=== PATIENT | female | born 2000 | race Caucasian/White ===

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

== ENCOUNTER 2021-09-05 17:48 | Observation (INO) ==
[2021-09-05 18:26] LABS: Bacteria,Urine Few per hpf (None-Few); Bilirubin,Urine Negative (Negative); Blood,Urine Moderate (Negative); Clarity,Urine Turbid (Clear); Color,Urine Colorless (Yellow); Glucose,Urine (UA) Normal (Normal); Ketones,Urine Negative (Negative); Leukocyte Esterase,Urine Large (Negative); Nitrite,Urine Negative (Negative); PH,Urine 6.5 pH Units (5.0-8.0); Protein,Urine Negative (Neg-Trace); RBC,Urine 0-3 per hpf (0-3); Specific Gravity,Urine 1.007 (1.010-1.025); Squamous Epithelial Cell,Urine Moderate per hpf (None-Few); Urobilinogen,Urine Normal (Normal); WBC,Urine 15-30 per hpf (0-3)
[2021-09-05 18:31] LABS: Basophils # 0.1 K/mcL (0.0-0.2); Basophils % 0.6 %; Eosinophils # 0.6 K/mcL (0.0-0.6); Eosinophils % 5.2 %; Hematocrit 38.1 % (35.3-44.9); Immature Granulocytes % 0.4 % (0-4); Lymphocytes % 17.1 %; Mean Corpuscular HGB Conc 31.5 g/dL (31.6-35.5); Mean Corpuscular Hemoglobin 27.3 pg (28.0-33.3); Mean Corpuscular Volume 86.6 fL (83.0-100.0); Mean Platelet Volume 11.2 fL (9.4-12.4); Monocytes # 1.1 K/mcL (0.0-1.3); Neutrophils # 7.6 K/mcL (1.6-8.9); Platelet Count 237 K/mcL (140-400); Red Cell Distribution Width 13.5 % (11.5-14.5); Segmented Neutrophils % 66.7 %; White Blood Count 11.4 K/mcL (4.3-11.1)
[2021-09-05 18:39] LABS: Amphetamine Screen,Urine Negative ng/mL (Cutoff=1000); Barbiturate Screen,Urine Negative ng/mL (Cutoff=200); Benzodiazepines Screen,Urine Negative ng/mL (Cutoff=200); Cannabinoid Screen,Urine Negative ng/mL (Cutoff = 50); Cocaine Screen,Urine Negative ng/mL (Cutoff= 300); Opiate Screen,Urine Negative ng/mL (Cutoff=300); Phencyclidine Screen,Urine Negative ng/mL (Cutoff=25)
[2021-09-05 18:49] LABS: Acetaminophen < 10 mcg/mL (10-20); BUN/Creatinine Ratio 7 (6-26); Blood Urea Nitrogen 7 mg/dL (6-20); Carbon Dioxide 27 mEq/L (23-29); Chloride 108 mEq/L (98-107); Ethanol < 10 mg/dL (Less than 10); Glucose 95 mg/dL (70-105); Osmolality,Calculated 280 (280-300); Potassium 3.5 mEq/L (3.5-5.1); Salicylate < 2.5 mg/dL (15.0-30.0); Sodium 136 mEq/L (136-145); eGFR For African Americans > 60 (> 60); eGFR For Non-African Americans > 60 (> 60)
[2021-09-05 22:50] LABS: Influenza A PCR Negative (Negative); Influenza B PCR Negative (Negative); Resp. Syncytial Virus PCR Negative (Negative)
[2021-09-05 23:15] LABS: SARS-CoV-2 by PCR (In House) Positive (Negative)
[2021-09-06] MEDS ORDERED: Naloxone 0.4 MG/ML INJ IVP PRN (02:19)
[2021-09-06] MEDS ORDERED: Acetaminophen 325 MG TABLET PO PRN (02:19)
[2021-09-06 02:39] LABS: Hematocrit 38.8 % (35.3-44.9); Hemoglobin 12.3 g/dL (11.5-15.4); Mean Corpuscular HGB Conc 31.7 g/dL (31.6-35.5); Mean Corpuscular Hemoglobin 27.5 pg (28.0-33.3); Mean Corpuscular Volume 86.6 fL (83.0-100.0); Mean Platelet Volume 11.3 fL (9.4-12.4); Platelet Count 246 K/mcL (140-400); Red Blood Count 4.48 M/mcL (3.82-4.97); Red Cell Distribution Width 13.5 % (11.5-14.5); White Blood Count 11.6 K/mcL (4.3-11.1)
[2021-09-06 02:42] LABS: Estimated Average Glucose 105 mg/dl; Hemoglobin A1C 5.3 %
[2021-09-06 02:59] LABS: BUN/Creatinine Ratio 6 (6-26); Blood Urea Nitrogen 5 mg/dL (6-20); Calcium 9.1 mg/dL (8.6-10.3); Carbon Dioxide 26 mEq/L (23-29); Chloride 108 mEq/L (98-107); Glucose 97 mg/dL (70-105); Iron 17 mcg/dL (50-170); Osmolality,Calculated 283 (280-300); Potassium 3.6 mEq/L (3.5-5.1); Sodium 138 mEq/L (136-145); eGFR For African Americans > 60 (> 60); eGFR For Non-African Americans > 60 (> 60)
[2021-09-06 03:12] LABS: Thyroid Stimulating Hormone 19.838 mcIU/mL (0.340-5.600)
[2021-09-06 03:17] LABS: Ferritin 53 ng/mL (10-120)
[2021-09-06 03:22] LABS: Folate 8.2 ng/mL (3.0-16.0)
[2021-09-06] MEDS ORDERED: *HR* LORazepam 2 MG/ML VIAL IVP ONE (03:30)
[2021-09-06] MEDS: cefTRIAXone 2,000 MG in 0.9 % Sodium Chloride Mini Bag 100 ML IVPB SCH (08:46)
[2021-09-06] MEDS ORDERED: ALPRAZolam 0.25 MG TABLET PO PRN (09:48)
[2021-09-06] MEDS: lamoTRIgine 25 MG TABLET PO SCH (18:09)
[2021-09-06] MEDS: BuPROPion XL (24 HR) 150 MG TABLET PO SCH (18:09)
[2021-09-07 02:53] VITALS: O2SAT 98
[2021-09-07 06:45] VITALS: BP 104/65; PULSE 68; TEMP 97.5
[2021-09-07] MEDS ORDERED: ARIPiprazole 5 MG TABLET PO SCH (09:00)
[2021-09-07] MEDS: lamoTRIgine 25 MG TABLET PO SCH (09:02)
[2021-09-07] MEDS: BuPROPion XL (24 HR) 150 MG TABLET PO SCH (09:02)
[2021-09-07] MEDS: cefTRIAXone 2,000 MG in 0.9 % Sodium Chloride Mini Bag 100 ML IVPB SCH (09:06)
[2021-09-08 07:34] LABS: % Iron Saturation 4 % (15-50); Transferrin 302 mg/dL (200-400)
== END 2021-09-07 12:01 | disposition home or self-care (01) ==
LOC: EMEROOARM 17:48 → 3BNU 17:48 → 1ANU 23:22 → SUATTDRO 23:57 → 3BNU 09-06 00:50
PROVIDERS: ADMIT Internal Medicine; ATTEND Internal Medicine

== ENCOUNTER 2022-03-08 17:17 | Inpatient (IN) ==
[2022-03-08] MEDS ORDERED: Cefuroxime PO 500 MG TABLET PO ONE (18:06)
[2022-03-08] MEDS ORDERED: Cefuroxime PO 250 MG TABLET PO ONE (18:30)
[2022-03-08 19:58] LABS: Bilirubin,Urine Negative (Negative); Blood,Urine Trace (Negative); Clarity,Urine Clear (Clear); Color,Urine Dark-Yellow (Yellow); Glucose,Urine (UA) Normal (Normal); Ketones,Urine 20 mg/dL (Negative); Leukocyte Esterase,Urine Negative (Negative); Mucus,Urine Few per lpf (None-Few); Nitrite,Urine Negative (Negative); Protein,Urine Trace mg/dL (Neg-Trace); Specific Gravity,Urine 1.015 (1.010-1.025); Squamous Epithelial Cell,Urine Moderate per hpf (None-Few); Urobilinogen,Urine Normal (Normal)
[2022-03-08 22:15] LABS: Influenza A PCR Negative (Negative); Influenza B PCR Negative (Negative); Resp. Syncytial Virus PCR Negative (Negative)
[2022-03-08 22:18] LABS: SARS-CoV-2 by PCR (In House) Negative (Negative)
[2022-03-09] MEDS ORDERED: Ibuprofen 400 MG TABLET PO PRN (00:27)
[2022-03-09] MEDS ORDERED: Haloperidol Lactate 5 MG/ML VIAL IM PRN (00:27)
[2022-03-09] MEDS ORDERED: *HR* LORazepam 2 MG/ML VIAL IM PRN (00:27)
[2022-03-09] MEDS ORDERED: *HR* LORazepam 1 MG TABLET PO PRN (00:27)
[2022-03-09] MEDS ORDERED: haloperidoL 5 MG TABLET PO PRN (00:27)
[2022-03-09] MEDS: traZODone 50 MG TABLET PO PRN ×2 (02:22→20:54)
[2022-03-09] MEDS ORDERED: MOM Conc 10 ML UD.LIQ PO PRN (08:00)
[2022-03-09] MEDS ORDERED: Mag Hydrox/Al Hydrox/Simeth 30 ML UDC PO PRN (08:00)
[2022-03-09] MEDS: ARIPiprazole 10 MG TABLET PO SCH (15:51)
[2022-03-09] MEDS: BuPROPion XL (24 HR) 150 MG TABLET PO SCH (15:51)
[2022-03-09] MEDS: lamoTRIgine 100 MG TABLET PO SCH (15:53)
[2022-03-09] MEDS: Nitrofurantoin (BID) 100 MG CAPSULE PO SCH (17:09)
[2022-03-09 19:55] VITALS: O2SAT 98
[2022-03-09] MEDS ORDERED: lamoTRIgine 100 MG TABLET PO SCH (21:00)
[2022-03-10] MEDS: lamoTRIgine 100 MG TABLET PO SCH (09:45)
[2022-03-10] MEDS: Nitrofurantoin (BID) 100 MG CAPSULE PO SCH (09:45)
[2022-03-10] MEDS: BuPROPion XL (24 HR) 150 MG TABLET PO SCH (09:45)
[2022-03-10] MEDS: ARIPiprazole 10 MG TABLET PO SCH (09:45)
[2022-03-10 10:23] VITALS: BP 109/78; PULSE 99; TEMP 97
== END 2022-03-10 12:00 | disposition home or self-care (01) | DRG 751 ==
LOC: EMEROOARM 17:17 → 1ANU 03-09 00:21
PROVIDERS: ADMIT Psychiatry & Neurology Psychiatry; ATTEND Psychiatry & Neurology Psychiatry